=== PATIENT | female | born 1960 | race Caucasian/White ===

== ENCOUNTER 2016-09-30 14:21 | Emergency (ER) | payer OTHER ==
--- NOTE | 2016-09-30 14:31 | EDM.PDOC ---
ED HPI GENERAL MEDICAL PROBLEM - General Chief Complaint: Head Injury Stated Complaint: struck in head by canopy that fell off cart at wor Time Seen by Provider: 09/30/16 14:25 Source of Information: Reports: Patient History Limitations: Reports: No Limitations - History of Present Illness Onset: Today, Sudden Duration: Minutes: Location: Reports: Head Quality: Reports: Ache, Throbbing Severity: Moderate Improves with: Reports: None Worsens with: Reports: None Context: Reports: Trauma Associated Symptoms: Reports: No Other Symptoms head Pain Score (Numeric/FACES): 7 - Related Data Allergies Allergy/AdvReac Type Severity Reaction Status Date / Time No Known Allergies Allergy Verified 09/30/16 14:24 Home Meds: Home Meds Venlafaxine HCl [Venlafaxine ER] 75 mg PO DAILY 09/30/16 [History] atorvaSTATin [Lipitor] 10 mg PO DAILY 09/30/16 [History] traMADol HCl [Tramadol HCl] 50 mg PO Q6HR PRN 09/30/16 [History] ED ROS GENERAL - Review of Systems Review Of Systems: See Below Constitutional: Reports: No Symptoms HEENT: Reports: No Symptoms Respiratory: Reports: No Symptoms Cardiovascular: Reports: No Symptoms Endocrine: Reports: No Symptoms GI/Abdominal: Reports: No Symptoms : Reports: No Symptoms Musculoskeletal: Reports: Neck Pain Skin: Reports: No Symptoms Neurological: Reports: Confusion, Headache Psychiatric: Reports: No Symptoms ED EXAM, HEAD INJURY - Physical Exam Exam: See Below Exam Limited By: Altered Mental Status General Appearance: Alert, No Apparent Distress Head: Scalp Abrasions Ears: Normal External Exam, Normal Canal, Hearing Grossly Normal, Normal TMs Nose: Normal Inspection, Normal Mucousa, No Blood Throat/Mouth: Normal Inspection, Normal Lips, Normal Teeth, Normal Gums, Normal Oropharynx, Normal Voice, No Airway Compromise Neck: Non-Tender, Full Range of Motion, Normal Alignment, Normal Inspection Respiratory: No Respiratory Distress, Lungs Clear, Normal Breath Sounds, No Accessory Muscle Use, Chest Non-Tender Cardiovascular: Normal Peripheral Pulses, Regular Rate, Rhythm, No Edema, No Gallop, No JVD, No Murmur, No Rub GI/Abdominal Exam: Normal Bowel Sounds, Soft, Non-Tender, No Organomegaly, No Distention, No Abnormal Bruit, No Mass (Female) Exam: Deferred Rectal (Female) Exam: Deferred Extremities: No Evidence of Injury 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 As Tested, No Motor/Sensory Deficits, Alert Skin: Ecchymosis (() - Jeannette Coma Score Best Eye Response ([place]): (4) Open Spontaneously Best Verbal Response ([place]): (5) Oriented Best Motor Response ([place]): (6) Obeys Commands Jeannette Total: 15 Course - Vital Signs Last Recorded V/S: Last Vital Signs Temp 99.4 F 09/30/16 14:46 Pulse 80 09/30/16 14:46 Resp 20 09/30/16 14:46 BP 130/62 09/30/16 14:46 Pulse Ox 97 09/30/16 14:46 - Orders/Labs/Meds Orders: Active Orders 24 hr Category Date Time Status Head wo Cont [CT] Stat Exams 09/30/16 14:29 Taken Departure - Departure Time of Disposition: 16:11 Disposition: Home, Self-Care 01 Condition: Good Clinical Impression: Contusion of cerebral cortex - Discharge Information Instructions: Facial or Scalp Contusion, Head Injury, Adult, [id number] Referrals: PCP,Not In Area [Primary Care Provider] - Forms: ED Department Discharge Care Plan Goals: Patient is to go home and rest apply ice to forehead as needed return to the emergency room if any concerns May take Tylenol 500 mg 2 tablets 4 times a day for headache and pain not to exceed 5 days - Problem List & Annotations (1) Contusion of head SNOMED Code(s): 423355295 Code(s): S00.93XA - CONTUSION OF UNSPECIFIED PART OF HEAD, INITIAL ENCOUNTER Status: Acute Priority: Medium Current Visit: Yes Qualifiers: Encounter type: initial encounter Contusion of head detail: orbital tissues - My Orders Last 24 Hours: My Active Orders 09/30/16 14:29 Head wo Cont [CT] Stat - Assessment/Plan Last 24 Hours: My Active Orders 09/30/16 14:29 Head wo Cont [CT] Stat
[2016-09-30 14:47] VITALS: BP 130/62
== END 2016-09-30 16:30 | disposition home or self-care (01) ==
LOC: LL.ED 14:21
DX: S06.2X0A Diffuse traumatic brain injury without loss of consciousness, initial encounter (principal); Z79.899 Other long term (current) drug therapy; W22.8XXA Striking against or struck by other objects, initial encounter
CPT/HCPCS: 70450; 99284

== ENCOUNTER → 2019-01-21 | Outpatient (CLI) | payer OTHER | LOC: LL.CLIN 14:27 | PROVIDERS: ATTEND Nurse Practitioner | DX: S59.911A Unspecified injury of right forearm, initial encounter (principal); M79.89 Other specified soft tissue disorders; X58.XXXA Exposure to other specified factors, initial encounter | CPT/HCPCS: 73090-RT ==

== ENCOUNTER 2019-04-22 13:37 | Observation (INO) | payer BC, OTHER ==
[2019-04-22] MEDS ORDERED: Ticagrelor 90 MG Tab PO ONE (13:39)
[2019-04-22] MEDS ORDERED: Famotidine 20 MG/2 ML SDV IVPUSH ONE (13:39)
[2019-04-22] MEDS ORDERED: Sodium Chloride 0.9% 10 ML Syringe FLUSH PRN ×2 (13:39→15:51)
[2019-04-22] MEDS ORDERED: Metoprolol Tartrate 5 MG/5 ML SDV IVPUSH ONE (13:39)
--- NOTE | 2019-04-22 13:39 | EDM.PDOC ---
ED HPI GENERAL MEDICAL PROBLEM - General Chief Complaint: Cardiovascular Problem Stated Complaint: CP Time Seen by Provider: 04/22/19 13:39 Source of Information: Reports: Patient, Family (Daughter, Weston), Old Records ([facility] chart/EMR) - History of Present Illness INITIAL COMMENTS - FREE TEXT/NARRATIVE: The patient was brought to the emergency room via ambulance with ENT at [facility] with one sublingual nitroglycerin tablet given in route. Note that the patient did already have 2 chewable regular strength coated aspirins given by the [facility] nurse prior to arrival of the recyclable materials sorter. Patient had 8/10 retrosternal and left-sided chest pressure with radiation to the left arm and associated with some nausea and diaphoresis with symptoms starting at about 13:00 hours this afternoon. Note that the patient has not been feeling well for the last few days including heartburn type symptoms. Her overall exercise tolerance has been low during the last year, which she has blamed on her weight gain. The patient denies any heart flutter, dizziness, orthostasis, orthopnea, paresthesias, or any other anginal-type symptoms. No recent history of other abdominal pain, emesis, diarrhea, melena, gross hematochezia, or any food intolerance, including fatty foods, etc.. In addition, no significant history of gross hematuria, colic, or other UTI symptoms. The patient also denies any recent fever, cough, wheezing, dyspnea, etc.. That blood pressures at [facility] were elevated at 170s over 100's prior to patient transfer. recyclable materials sorter increase the previously applied O2 from 2 L to 6 L/m by nasal cannula prior to transfer to this facility. Some improvement of patient's chest pain to 6/10 prior to arrival with improvement after application of O2. Onset: Sudden Onset Date: 04/22/19 Onset Time: 13:00 Duration: Improving Location: Reports: Chest, Abdomen (Epigastric), Upper Extremity, Left, Radiates to (As above). Denies: Head, Face, Neck, Back, Pelvis, Upper Extremity, Right, Lower Extremity, Left, Lower Extremity, Right Quality: Reports: Pressure, Same as Previous Episode Improves with: Reports: Movement Worsens with: Reports: None Context: Reports: Other (As above). Denies: Sick Contact, Trauma Associated Symptoms: Reports: Confusion, Diaphoresis, Nausea/Vomiting. Denies: Chest Pain, Fever/Chills, Headaches, Loss of Appetite, Malaise, Rash, Seizure, Shortness of Breath, Syncope, Weakness Treatments INCIDENT RESPONSE SPECIALIST: Reports: Aspirin, Oxygen Left Chest Pain Score (Numeric/FACES): 8 - Related Data Allergies Allergy/AdvReac Type Severity Reaction Status Date / Time erythromycin base Allergy Rash Verified 04/22/19 13:49 Home Meds: Home Meds Citalopram [Citalopram HBr] 20 mg PO DAILY 04/22/19 [History] Ibuprofen [Advil] 400 mg PO Q6HR PRN 04/22/19 [History] cephALEXin [Keflex] 500 mg PO TID 04/22/19 [History] Past Medical History HEENT History: Reports: Cataract, Other (See Below). Denies: Allergic Rhinitis , Glaucoma, Hard of Hearing, Impaired Vision, Macular Degeneration, Retinal Detachment Other HEENT History: Beginning cataracts. Cardiovascular History: Reports: High Cholesterol, Other (See Below). Denies: Afib, Aneurysm, Arrhythmia, Blood Clots/VTE/DVT, CAD, Cardiomyopathy, Heart Failure, Heart Murmur, Hypertension, [place], PVD, Syncope Other Cardiovascular History: Dyslipidemia with no current medical therapy with patient not tolerating Lipitor secondary to myalgias. Respiratory History: Reports: Intubation, Previous. Denies: Asthma, Bronchitis , Recurrent, COPD, Intubation, Difficult, PE, Pneumonia, Recurrent, Pneumothorax , Sleep Apnea, TB Gastrointestinal History: Reports: GERD. Denies: Bowel Obstruction, Celiac Disease, Cholelithiasis, Chronic Constipation, Chronic Diarrhea, Colon Polyp, Diverticulosis, Fatty Liver, Fecal Incontinence, Gastritis, GI Bleed, Hepatitis , Hiatal Hernia, Inflammatory Bowel Disease, Irritable Bowel Syndrome, Jaundice , Pancreatitis, PUD Genitourinary History: Reports: Renal Calculus, STD, UTI, Recurrent, Other (See Below). Denies: Acute Renal Failure, Chronic Renal Insuffiency, Urinary Incontinence Other Genitourinary History: Right-sided urolithiasis with spontaneous passage in 1989. Previously treated chlamydia in her 20s. GIN CLERK History: Reports: . Denies: Dysfunctional Uterine Bleeding, Endometriosis, Fibroids, Polycystic Ovaries, Spontaneous : 4 Para: 4 LMP (Approximate): Other (See Below) Other GIN CLERK History: Additional diabetes with last . Otherwise Full term without complications during pregnancies or deliveries. Surgical menopause secondary to uterine prolapse after last delivery. History of benign ovarian cysts. Musculoskeletal History: Reports: Arthritis, Back Pain, Chronic, Neck Pain, Chronic, Osteoarthritis. Denies: Amputation, Fracture, Gout, RA, SLE Other Musculoskeletal History: Bilateral Carpal tunnel syndrome with no surgery to this point. Neurological History: Reports: Concussion, Head Trauma, Neuropathy, Peripheral, Other (See Below). Denies: Cerebral Aneurysms, CVA, Headaches, Chronic, Migraines, MS, Neuropathy, Diabetic, Parkinson's, Seizure, TIA Other Neuro History: Peripheral neuropathy secondary to carpal tunnel syndrome as above. Concussion at about age 9. Psychiatric History: Reports: Anxiety, Depression. Denies: Abuse, Victim of, ADD, ADHD, Addiction, Psych Hospitalization(s), PTSD, Suicide Attempt, Suicidal Ideation Endocrine/Metabolic History: Reports: Diabetes, Gestational, Obesity/BMI 30+. Denies: Diabetes, Type I, Diabetes, Type II, Hypothyroidism, IDDM Hematologic History: Reports: Anemia, Other (See Below). Denies: Blood Transfusion(s), Iron Deficiency Other Hematologic History: Anemia with pregnancies. Immunologic History: Reports: None. Denies: AIDS, HIV, SLE Oncologic (Cancer) History: Reports: None. Denies: Basal Cell Carcinoma, Breast , Cervix, Colon, Hodgkin's Lymphoma, Leukemia, Lymphoma, Malignant Melanoma, Non -Hodgkin's Lymphoma, Ovarian, Squamous Cell Carcinoma, Uterine Dermatologic History: Reports: None. Denies: Eczema, Psoriasis - Infectious Disease History Infectious Disease History: Reports: Chicken Pox, Measles. Denies: C-Difficile , Meningitis, Mononucleosis, MRSA, Mumps, Pertussis (Whooping Cough), Rheumatic Fever, RSV, Rubella, Scarlet Fever, Shingles, TB, VRE - Past Surgical History Head Surgeries/Procedures: Reports: None HEENT Surgical History: Reports: Adenoidectomy, LASIK, Oral Surgery, Tonsillectomy, Other (See Below). Denies: Cataract Surgery, Eye Surgery, Laser Surgery, Myringotomy w Tube(s), Naso-Sinus Surgery Other HEENT Surgeries/Procedures: [place] teeth extraction X 4 at age 18. Dental implantation X 1 in 2018. Tonsillectomy and adenoidectomy at age 12. LASIK surgery in 2007. Cardiovascular Surgical History: Reports: None. Denies: Varicose Respiratory Surgical History: Reports: None. Denies: Thoracentesis GI Surgical History: Reports: Colonoscopy, Other (See Below). Denies: Appendectomy, Cholecystectomy, EGD, Hernia, Inguinal, Hernia Repair/Other, Polypectomy Other GI Surgeries/Procedures: Colonoscopy in 2011. Female Surgical History: Reports: Breast Biopsy, Hysterectomy. Denies: Section, D&C, Oophorectomy, Salpingo-Oophorectomy, Tubal Ligation Other Female Surgeries/Procedures: Left breast biopsies for benign disease in 2004 and 2007. Partial hysterectomy secondary to prolapsed uterus in 2008 with concomitant excision of benign ovarian cysts. Endocrine Surgical History: Reports: None. Denies: Thyroid Biopsy Neurological Surgical History: Reports: None. Denies: C-Spine, Discectomy, Laminectomy, Lumbar Spine, Sacral Spine, Spinal Fusion, Thoracic Spine, Vertebroplasty Musculoskeletal Surgical History: Reports: Arthroscopic Procedure, Knee Replacement. Denies: Arthroscopic Knee, Carpal Tunnel, Ganglion Cyst, Joint Replacement, ORIF Other Musculoskeletal Surgeries/Procedures:: Excision of left wrist ganglion cyst at age 16. Left wrist tendon release in 2015. Left Knee arthroscopic meniscal surgery in the fall of 2016. Oncologic Surgical History: Reports: None Dermatological Surgical History: Reports: None - Past Imaging History Past Imaging History: Reports: CAT Scan (CT of the chest using coronary protocol in 2014 which was negative by patient history. CT of the head on .), MRI (MRI of the left knee on 04/22/16. MRI of the left wrist on 05/09/15 and 05/01/15.), Stress Testing (Exercise cardiac stress test in about 2014) Social & Family History - Family History HEENT: Reports: Glaucoma, Other (See Below). Denies: Macular Degeneration, Retinal Detachment Other HEENT Family History: Father with glaucoma. Cardiac: Reports: Aneurysm, CAD, Cardiomyopathy, Heart Failure, High Cholesterol , Hypertension, [place], Pacemaker, Other (See Below). Denies: Afib, Arrhythmia, Blood Clots/VTE/DVT, PVD/COD, Syncope Other Cardiac Family History: Father with history of [place] initially in his 50s with subsequent cardiac arrhythmia requiring pacemaker placement. Additional [place] about 2 years thereafter with no other cardiac procedures. Father with hypertension and hyperlipidemia. Paternal grandfather with history of fatal ruptured thoracic aortic aneurysm at about 68. Paternal aunt with fatal [place] in her late 60s. Respiratory: Reports: COPD, Sleep Apnea, Other (See Below). Denies: Asthma, PE , Pneumothorax Other Respiratory Family Hisory: Mother with COPD history of tobacco use. Parents with sleep apnea. GI: Reports: Colon Polyps, Other (See Below). Denies: Celiac Disease, Cholelithiasis, GERD, GI bleed, Inflammatory Bowel Disease, Irritable Bowel Syndrome, PUD Other GI Family History: Mother and maternal closed 2 with colonic polyps. : Reports: None. Denies: Renal Calculus, Renal Disease/Insufficiency OBGYN: Reports: None. Denies: Endometriosis, Recurrent Spontaneous Musculoskeletal: Reports: Arthritis, RA, Other (See Below). Denies: Gout, SLE Other Musculoskeletal Family History: Mother with rheumatoid arthritis. Neurological: Reports: CVA, Other (See Below). Denies: Alzheimers Disease, Cerebral Aneurysms, Dementia, Migraines, MS, Seizure, TIA Other Neurological Family History: Father with initial CVA at age 69 with fatal CVA at age 71. Psychiatric: Reports: Anxiety, Depression, Other (See Below). Denies: Abuse, Victim of, ADD, ADHD, Psych Hospitalization(s), PTSD, Suicide Attempt Other Psychiatric Family History: Father with anxiety depression disorder. Endocrine/Metabolic: Reports: Diabetes, type II, IDDM, Other (See Below). Denies: Diabetes, Gestational, Diabetes, Type I, Diabetes Mellitus, Type 3c Other Endocrine/Metabolic Family History: Father, paternal aunt, and paternal grandfather with IDDM. AODM in maternal grandmother. Sister with previous IDDM which did improve after weight loss and persistent AODM. Hematologic: Denies: Anemia, SLE Immunologic: Reports: None. Denies: AIDS, HIV, SLE Dermatologic: Reports: None. Denies: Eczema, Psoriasis Oncologic: Reports: Brain, Colon, Other (See Below). Denies: Breast, Cervix, Hodgkin's Lymphoma, Leukemia, Lymphoma, Ovarian, Uterine Other Oncologic Family History: Maternal uncle with lung cancer in his 50s. Mother with fatal lung cancer including cerebral metastases at age 68 with previous history of tobacco use. Maternal grandfather with fatal brain cancer at age 50. Paternal grandmother with brain cancer at age 68. - Tobacco Use Smoking Status *Q: Never Smoker Tobacco Use Within Last Twelve Months: No Used Tobacco, but Quit: No Smoking Cessation Information Provided To Patient: No Second Hand Smoke Exposure: No Second Hand Smoke Education Provided: No - Caffeine Use Caffeine Use: Reports: Coffee (4 cups per day), Soda (1 soda per day), Tea (1 Glass per month). Denies: Energy Drinks - Alcohol Use Alcohol Use History: Yes Days Per Week of Alcohol Use: 0 Number of Drinks Per Day: 2 Number of Drinks Per Day Comment: Usually on a monthly basis. No previous DWIs, problems with alcohol abuse, etc. Total Drinks Per Week: 0 Alcohol Use in Last Twelve Months: Yes Alcohol Use Frequency: Monthly - Recreational Drug Use Recreational Drug Use: No Drug Use in Last 12 Months: No Recreational Drug Type: Denies: Amphetamines (Speed), Cocaine, Heroin, Inhalants (Glues, Solvents, Aerosols), LSD (Acid), Marijuana/Hashish, Mescaline , Methamphetamine, Morphine, Oxycodone - Living Situation & Occupation Living situation: Reports: (1992), with Family (Daughter) Occupation: Employed ([employer]) ED ROS GENERAL - Review of Systems Review Of Systems: Comprehensive ROS is negative, except as noted in HPI. ED EXAM, GENERAL - Physical Exam Exam: See Below Exam Limited By: No Limitations General Appearance: Alert, WD/WN, No Apparent Distress, Anxious (Mild) Eye Exam: Bilateral Eye: EOMI, Normal Inspection (No nystagmus), PERRL Ears: Normal External Exam, Normal Canal, Hearing Grossly Normal, Normal TMs Nose: Normal Inspection, Normal Mucosa, No Blood Throat/Mouth: Normal Inspection, Normal Lips, Normal Teeth, Normal Gums, Normal Oropharynx, Normal Voice, No Airway Compromise. No: Dysphagia, Perioral Cyanosis Head: Atraumatic, Normocephalic Neck: Normal Inspection, Supple, Non-Tender, Full Range of Motion. No: Carotid Bruit, Lymphadenopathy (L), Lymphadenopathy (R), Thyromegaly Respiratory/Chest: No Respiratory Distress, Lungs Clear, Normal Breath Sounds, No Accessory Muscle Use, Chest Non-Tender. No: Pleural Rub, Retractions Cardiovascular: Normal Peripheral Pulses, Regular Rate, Rhythm (Mild sinus arrhythmia), No Edema, No Gallop, No JVD, No Murmur, No Rub. No: Gallop/S3, Gallop/S4, Extra Beats, Friction Rub Peripheral Pulses: 2+: Radial (L), Radial (R), Dorsalis Pedis (L), Dorsalis Pedis (R) GI/Abdominal: Normal Bowel Sounds, Soft, Non-Tender, No Organomegaly, No Distention, No Abnormal Bruit, No Mass, Pelvis Stable, Other (Obese). No: Guarding (Female) Exam: Deferred Rectal (Female) Exam: Deferred Back Exam: Normal Inspection, Full Range of Motion. No: CVA Tenderness (L), CVA Tenderness (R), Muscle Spasm Extremities: Normal Inspection, Normal Range of Motion, Non-Tender, No Pedal Edema, Normal Capillary Refill. No: Warren's Sign Neurological: Alert, Oriented, CN II-XII Intact, Normal Cognition, Normal Gait, Normal Reflexes, No Motor/Sensory Deficits Psychiatric: Anxious (Mild). No: Depressed Mood Skin Exam: Warm, Dry, Intact, Normal Color, No Rash. No: Diaphoretic, Tattoo(s) , Wound/Incision Lymphatic: No Adenopathy EKG INTERPRETATION EKG Date: 04/22/19 Time: 13:40 Rhythm: NSR (Mild sinus arrhythmia) Rate (Beats/Min): 72 [place]: Normal (Left) P-Wave: Present (Diffuse biphasic P waves and poor R-wave progression in the anterior leads) QRS: RBBB (0.10 seconds representing repolarization changes versus beginning incomplete right bundle branch block) ST-T: Other (Wave inversion in lead 3, V1, and V3 with no lead reversal. Possible beginning T-wave inversion in lead aVF) QT: Normal [place]/PQ Interval: 0.12 seconds ribs in a short [place] interval with no delta waves noted. Comparison: NA - No Prior EKG EKG Interpretation Comments: 1. Borderline inferoanterior coronary artery disease 2. Incomplete right bundle branch block 3. Short [place] interval Course - Vital Signs Last Recorded V/S: Last Vital Signs Temp 37.0 C 04/22/19 13:38 Pulse 74 04/22/19 13:58 Resp 16 04/22/19 13:38 BP 169/83 H 04/22/19 13:58 Pulse Ox 100 04/22/19 13:40 Vital Signs - 24 hr 04/22/19 04/22/19 04/22/19 13:38 13:40 13:57 Temperature [ 37.0 C Temporal] Pulse, Peripheral Pulse, 70 Peripheral [ Pulse Oximetry] Respiratory 16 Rate Blood Pressure 169/83 H Blood Pressure 161/100 H [Left Upper Arm ] O2 Sat by Pulse 95 Oximetry O2 Sat by Pulse 100 Oximetry [ Nasal Cannula] 04/22/19 04/22/19 04/22/19 13:58 14:05 14:20 Temperature [ Temporal] Pulse, 74 Peripheral Pulse, 59 L 60 Peripheral [ Pulse Oximetry] Respiratory 19 19 Rate Blood Pressure 169/83 H Blood Pressure 144/85 H 162/72 H [Left Upper Arm ] O2 Sat by Pulse 95 94 L Oximetry O2 Sat by Pulse Oximetry [ Nasal Cannula] 04/22/19 04/22/19 04/22/19 14:35 14:50 15:05 Temperature [ Temporal] Pulse, Peripheral Pulse, 60 63 60 Peripheral [ Pulse Oximetry] Respiratory 19 19 20 Rate Blood Pressure Blood Pressure 145/72 H 163/74 H 182/83 H [Left Upper Arm ] O2 Sat by Pulse 98 99 99 Oximetry O2 Sat by Pulse Oximetry [ Nasal Cannula] - Orders/Labs/Meds Orders: Active Orders 24 hr Category Date Time Status Cardiac Monitoring [RC] . DIRECTED Care 04/22/19 13:40 Active EKG Documentation Completion [RC] ASDIRECTED Care 04/22/19 13:40 Active Oxygen Therapy, ED [RC] CONTINUOUS Care 04/22/19 13:40 Active Peripheral IV Care [RC] . DIRECTED Care 04/22/19 13:40 Active Pulse Oximetry [RC] CONTINUOUS Care 04/22/19 13:40 Active Up With Assistance [RC] PFP Care 04/22/19 13:40 Active Vital Signs [RC] PFP Care 04/22/19 13:40 Active Nothing per Oral Now Diet [DIET] Diet 04/22/19 Breakfast Active Chest 1V Frontal [CR] Stat Exams 04/22/19 13:40 Taken Nitroglycerin [Nitrostat] Med 04/22/19 13:44 Stat 0.4 mg SL ONETIME STA Sodium Chloride 0.9% [Saline Flush] Med 04/22/19 13:39 Active 10 ml FLUSH ASDIRECTED PRN Obtain Past Medical Record [OM.PC] Urgent Oth 04/22/19 13:40 Active Peripheral IV Insertion Adult [OM.PC] Stat Oth 04/22/19 13:40 Ordered Resuscitation Status Stat Resus Stat 04/22/19 13:39 Ordered Medication Orders Nitroglycerin (Nitrostat) 0.4 mg SL ONETIME STA Stop: 04/23/19 13:45 Last Admin: 04/22/19 13:57 Dose: 0.4 mg Sodium Chloride (Saline Flush) 10 ml FLUSH ASDIRECTED PRN PRN Reason: Keep Vein Open Last Admin: 04/22/19 14:05 Dose: 10 ml Labs: Laboratory Tests 04/22/19 04/22/19 04/22/19 Range/Units 13:45 13:45 13:45 WBC 5.6 (4.0-10.2) K/uL RBC 4.33 (3.77-5.09) M/uL Hgb 13.2 (11.7-15.5) g/dL Hct 39.8 (34.0-46.0) % MCV 91.9 (84.0-98.0) fL MCH 30.5 (28.2-33.3) pg MCHC 33.2 (31.7-36.0) g/dL RDW 12.7 (11.2-14.1) % Plt Count 250 (150-350) K/uL Neut % (Auto) 62.7 (45.0-80.0) % Lymph % (Auto) 26.2 (10.0-50.0) % [place] % (Auto) 7.7 (2.0-14.0) % Eos % (Auto) 2.9 (0.0-5.0) % Baso % (Auto) 0.5 (0.0-2.0) % Neut # (Auto) 3.50 (1.40-7.00) K/uL Lymph # (Auto) 1.46 (0.50-3.50) K/uL [place] # (Auto) 0.43 (0.00-1.00) K/uL Eos # (Auto) 0.16 (0.00-0.50) K/uL Baso # (Auto) 0.03 (0.00-0.20) K/uL PT 11.0 (9.5-12.0) SEC INR 1.0 APTT 24.1 (21.0-31.3) SEC D-Dimer, Quantitative < 100 (0-400) ng/mL Sodium (136-145) mmol/L Potassium (3.5-5.1) mmol/L Chloride (98-107) mmol/L Carbon Dioxide (21.0-32.0) mmol/L BUN (7-18) mg/dL Creatinine (0.51-1.17) mg/dL Est Cr Clr Drug Dosing mL/min Estimated GFR (MDRD) mL/min Glucose (74-106) mg/dL Lactic Acid (0.4-2.0) mmol/L Uric Acid (2.6-7.2) mg/dL Calcium (8.5-10.1) mg/dL Magnesium (1.8-2.4) mg/dL Total Bilirubin (0.2-1.0) mg/dL AST (15-37) U/L ALT (12-78) U/L Alkaline Phosphatase (46-116) IU/L Creatine Kinase (26-308) U/L Creatine Kinase Index (0.0-2.5) % CK-MB (CK-2) (0.00-3.60) ng/mL Troponin I (0.000-0.056) ng/mL NT-Pro-B Natriuret Pep (0-125) pg/mL Total Protein (6.4-8.2) g/dL Albumin (3.4-5.0) g/dL TSH, Ultra Sensitive (0.358-3.740) mIU/mL 04/22/19 04/22/19 Range/Units 13:45 13:45 WBC (4.0-10.2) K/uL RBC (3.77-5.09) M/uL Hgb (11.7-15.5) g/dL Hct (34.0-46.0) % MCV (84.0-98.0) fL MCH (28.2-33.3) pg MCHC (31.7-36.0) g/dL RDW (11.2-14.1) % Plt Count (150-350) K/uL Neut % (Auto) (45.0-80.0) % Lymph % (Auto) (10.0-50.0) % [place] % (Auto) (2.0-14.0) % Eos % (Auto) (0.0-5.0) % Baso % (Auto) (0.0-2.0) % Neut # (Auto) (1.40-7.00) K/uL Lymph # (Auto) (0.50-3.50) K/uL [place] # (Auto) (0.00-1.00) K/uL Eos # (Auto) (0.00-0.50) K/uL Baso # (Auto) (0.00-0.20) K/uL PT (9.5-12.0) SEC INR APTT (21.0-31.3) SEC D-Dimer, Quantitative (0-400) ng/mL Sodium 141 (136-145) mmol/L Potassium 4.0 (3.5-5.1) mmol/L Chloride 104 (98-107) mmol/L Carbon Dioxide 27.9 (21.0-32.0) mmol/L BUN 18 (7-18) mg/dL Creatinine 0.72 (0.51-1.17) mg/dL Est Cr Clr Drug Dosing 70.45 mL/min Estimated GFR (MDRD) > 60 mL/min Glucose 86 (74-106) mg/dL Lactic Acid 0.7 (0.4-2.0) mmol/L Uric Acid 3.8 (2.6-7.2) mg/dL Calcium 9.1 (8.5-10.1) mg/dL Magnesium 1.9 (1.8-2.4) mg/dL Total Bilirubin 0.4 (0.2-1.0) mg/dL AST 20 (15-37) U/L ALT 22 (12-78) U/L Alkaline Phosphatase 72 (46-116) IU/L Creatine Kinase 89 (26-308) U/L Creatine Kinase Index 0.9 (0.0-2.5) % CK-MB (CK-2) 0.80 (0.00-3.60) ng/mL Troponin I 0.001 (0.000-0.056) ng/mL NT-Pro-B Natriuret Pep 127 H (0-125) pg/mL Total Protein 6.6 (6.4-8.2) g/dL Albumin 3.6 (3.4-5.0) g/dL TSH, Ultra Sensitive 3.821 H (0.358-3.740) mIU/mL Meds: Medications Generic Name Dose Route Start Last Admin Trade Name Freq PRN Reason Stop Dose Admin Nitroglycerin 0.4 mg 04/22/19 13:44 04/22/19 13:57 Nitrostat SL 04/23/19 13:45 0.4 mg ONETIME STA Administration Sodium Chloride 10 ml 04/22/19 13:39 04/22/19 14:05 Saline Flush FLUSH 10 ml ASDIRECTED PRN Administration Keep Vein Open Discontinued Medications Generic Name Dose Route Start Last Admin Trade Name Freq PRN Reason Stop Dose Admin Famotidine 40 mg 04/22/19 13:39 04/22/19 13:58 Pepcid IVPUSH 04/22/19 13:40 40 mg ONETIME ONE Administration Metoprolol Tartrate 2.5 mg 04/22/19 13:39 04/22/19 13:58 Lopressor IVPUSH 04/22/19 13:40 2.5 mg ONETIME ONE Administration Ticagrelor 180 mg 04/22/19 13:39 04/22/19 13:57 Brilinta PO 04/22/19 13:40 180 mg ONETIME ONE Administration - Radiology Interpretation Free Text/Narrative:: coil former shows mild sinus arrhythmia with initial heart rate in the 70s and occasional borderline bradycardia in the high 50s after IV Lopressor therapy. No other ectopy or arrhythmia. Chest x-ray, portable, shows mild prominence of the proximal aortic arch with no cardiomegaly, CHF, pulmonary infiltrates, pneumothorax, etc. Departure - Departure Time of Disposition: 15:35 Disposition: Refer to Observation Condition: Good Clinical Impression: Incomplete right bundle branch block (RBBB), Dyslipidemia, Mixed anxiety depressive disorder, Hypothyroidism (acquired) Chest pain Qualifiers: Chest pain type: precordial pain Qualified Code(s): R07.2 - Precordial pain Osteoarthritis Qualifiers: Osteoarthritis location: multiple joints Osteoarthritis type: primary Qualified Code(s): M15.0 - Primary generalized (osteo)arthritis Referrals: Ada Rothman NP [Primary Care Provider] - Forms: ED Department Discharge Care Plan Goals: See plan. Sepsis Event Note - Focused Exam Vital Signs: Vital Signs Temp Pulse Pulse Resp BP BP Pulse Ox 04/22/19 13:58 74 169/83 H 04/22/19 13:57 169/83 H 04/22/19 13:40 04/22/19 13:38 37.0 C 70 16 161/100 H 95 Pulse Ox 04/22/19 13:58 04/22/19 13:57 04/22/19 13:40 100 04/22/19 13:38 Date Exam was Performed: 04/22/19 Time Exam was Performed: 14:31 - Problem List & Annotations (1) Chest pain SNOMED Code(s): 27500951 Code(s): R07.9 - CHEST PAIN, UNSPECIFIED Status: Acute Priority: High Current Visit: Yes Onset Date: 04/22/19 Annotation/Comment:: Chest pain protocol was initiated in the emergency room upon patient's arrival.The patient did receive aspirin prior to arrival as above. Initiate standard rule out [place] orders. Cardiology consultation depending on her clinical course. Note persistently elevated blood pressure despite sublingual nitroglycerin tablets 2 and low-dose IV Lopressor. Secondary to some borderline EKG changes as above Imdur therapy will be initiated on admission. Recommend Cardiolite stress test on an outpatient basis. [facility] physician assumes care in the a.m.. Note some borderline bradycardia with IV Lopressor with no further beta viridiana therapy at this time. Qualifiers: Chest pain type: precordial pain Qualified Code(s): R07.2 - Precordial pain (2) Dyslipidemia SNOMED Code(s): 435183263 Code(s): E78.5 - HYPERLIPIDEMIA, UNSPECIFIED Status: Chronic Priority: Medium Current Visit: Yes Annotation/Comment:: Lipid panel in a.m. Additional glycosylated hemoglobin secondary to patient's previous history of gestational diabetes. Weight loss in moderation is advisable with dietary information provided at discharge. (3) Hypothyroidism (acquired) SNOMED Code(s): 677850571 Code(s): E03.9 - HYPOTHYROIDISM, UNSPECIFIED Status: Acute Priority: Medium Current Visit: Yes Onset Date: 04/22/19 Annotation/Comment:: Mildly elevated TSH. Possible borderline beginning hypothyroidism. Initiate low- dose Synthroid therapy, which should also be beneficial for her anxiety, etc.. Recommend follow-up TSH in 4 weeks. (4) Incomplete right bundle branch block (RBBB) SNOMED Code(s): 016790282 Code(s): I45.10 - UNSPECIFIED RIGHT BUNDLE-BRANCH BLOCK Status: Acute Priority: High Current Visit: Yes Onset Date: 04/22/19 Annotation/Comment: : Observe for now (5) Mixed anxiety depressive disorder SNOMED Code(s): 159155854 Code(s): F41.8 - OTHER SPECIFIED ANXIETY DISORDERS Status: Chronic Priority: Medium Current Visit: Yes Annotation/Comment:: Moderate control based on clinical exam. Observe for now. Close follow-up by regular provider. (6) Osteoarthritis SNOMED Code(s): 833679121 Code(s): M19.90 - UNSPECIFIED OSTEOARTHRITIS, UNSPECIFIED SITE Status: Chronic Priority: Medium Current Visit: Yes Annotation/Comment:: Stable by patient history. Qualifiers: Osteoarthritis location: multiple joints Osteoarthritis type: primary Qualified Code(s): M15.0 - Primary generalized (osteo)arthritis - Problem List Review Problem List Initiated/Reviewed/Updated: Yes - My Orders Last 24 Hours: My Active Orders 04/22/19 13:39 Sodium Chloride 0.9% [Saline Flush] 10 ml FLUSH ASDIRECTED PRN Resuscitation Status Stat 04/22/19 13:40 Cardiac Monitoring [RC] . DIRECTED EKG Documentation Completion [RC] ASDIRECTED Oxygen Therapy, ED [RC] CONTINUOUS Peripheral IV Care [RC] . DIRECTED Pulse Oximetry [RC] CONTINUOUS Up With Assistance [RC] PFP Vital Signs [RC] PFP Chest 1V Frontal [CR] Stat Obtain Past Medical Record [OM.PC] Urgent Peripheral IV Insertion Adult [OM.PC] Stat 04/22/19 13:44 Nitroglycerin [Nitrostat] 0.4 mg SL ONETIME STA 04/22/19 Breakfast Nothing per Oral Now Diet [DIET] - Assessment/Plan Admission H&P: Please use this note as an admission H&P Last 24 Hours: My Active Orders 04/22/19 13:39 Sodium Chloride 0.9% [Saline Flush] 10 ml FLUSH ASDIRECTED PRN Resuscitation Status Stat 04/22/19 13:40 Cardiac Monitoring [RC] . DIRECTED EKG Documentation Completion [RC] ASDIRECTED Oxygen Therapy, ED [RC] CONTINUOUS Peripheral IV Care [RC] . DIRECTED Pulse Oximetry [RC] CONTINUOUS Up With Assistance [RC] PFP Vital Signs [RC] PFP Chest 1V Frontal [CR] Stat Obtain Past Medical Record [OM.PC] Urgent Peripheral IV Insertion Adult [OM.PC] Stat 04/22/19 13:44 Nitroglycerin [Nitrostat] 0.4 mg SL ONETIME STA 04/22/19 Breakfast Nothing per Oral Now Diet [DIET] Assessment:: As above Plan: As above. Extensive precautions were given to the patient and her daughter, who are in agreement with the treatment plan. The patient's condition is stable enough for observation status and general supervision.
[2019-04-22] MEDS ORDERED: Nitroglycerin 0.4 MG Tab.SL SL STA (13:44)
[2019-04-22 14:16] LABS: CHLORIDE,CL 104 mmol/L (98-107); SODIUM,NA 141 mmol/L (136-145)
[2019-04-22] MEDS ORDERED: Temazepam 15 MG Cap PO PRN (15:51)
[2019-04-22] MEDS ORDERED: Isosorbide Mononitrate 30 MG Tab.ER PO ONE (15:53)
[2019-04-22] MEDS: Cephalexin 250 MG Cap PO SCH (17:29)
[2019-04-22] MEDS ORDERED: Isosorbide Mononitrate 30 MG Tab.ER PO SCH (18:00)
[2019-04-22] MEDS: Acetaminophen 325 MG Tab PO PRN (19:33)
[2019-04-23] MEDS ORDERED: Levothyroxine 25 MCG Tab PO SCH (07:30)
[2019-04-23] MEDS: Cephalexin 250 MG Cap PO SCH ×2 (07:45→11:40)
[2019-04-23] MEDS: Acetaminophen 325 MG Tab PO PRN (07:53)
[2019-04-23] MEDS ORDERED: Citalopram 20 MG Tab PO SCH (08:00)
[2019-04-23 08:03] LABS: HEMOGLOBIN A1C 5.9 % (4.3-5.7)
[2019-04-23 08:07] LABS: CHLORIDE,CL 107 mmol/L (98-107); SODIUM,NA 143 mmol/L (136-145)
[2019-04-23] MEDS ORDERED: Metoprolol Succinate 25 MG Tab.ER PO ONE (08:40)
[2019-04-23] MEDS ORDERED: Meclizine 25 MG Tab PO ONE (08:42)
[2019-04-23 12:20] VITALS: BP 140/74; PULSE 62
--- NOTE | 2019-04-23 16:12 | PCM.DCSUM1 ---
Discharge Summary - Hospital Course Brief History: Admitted for chest pain complaint/rule out MA protocol Diagnosis: Stroke: No - Discharge Data Discharge Date: 04/23/19 Discharge Disposition: Home, Self-Care 01 Condition: Good - Referral to Home Health Primary Care Physician: Ada Rothman NP - Discharge Diagnosis/Problem(s) (1) Chest pain SNOMED Code(s): 46739367 ICD Code: R07.9 - CHEST PAIN, UNSPECIFIED Status: Acute Priority: High Current Visit: Yes Onset Date: 04/22/19 Problem Details: Pain-free since shortly after arrival to ER yesterday. Serial troponins negative. No changes noted on EKG/Telemetry. EKGs reviewed by /[facility]. She did not recommend any additional testing at this time given the negative cardiac workup so far. Patient recalls similar chest pain around 5 years ago that went away with GI cocktail. Had negative treadmill testing afterwards. Feels that this recent episode was triggered by eating a 'wafer cookie' offered to her at work. Eating a banana helped, but subsequent coffee made it worse again. Thus symptoms are more suggestive of GI etiology. Will have patient follow up with clinic next week and discuss having updated stress testing. Qualifiers: Chest pain type: precordial pain Qualified Code(s): R07.2 - Precordial pain (2) Hypertension SNOMED Code(s): 53379525 ICD Code: I10 - ESSENTIAL (PRIMARY) HYPERTENSION Status: Acute Priority: High Current Visit: Yes Problem Details: Hx elevated BPs on/off in past. Significant elevation yesterday at [facility] per ER note. Will start patient on Norvasc. Recommended home BP monitor. Close follow up with primary provider. Imgur caused headache and was discontinued. Qualifiers: Hypertension type: unspecified Qualified Code(s): I10 - Essential (primary ) hypertension (3) Hypothyroidism (acquired) SNOMED Code(s): 332307409 ICD Code: E03.9 - HYPOTHYROIDISM, UNSPECIFIED Status: Acute Priority: Medium Current Visit: Yes Onset Date: 04/22/19 Problem Details: Mildly elevated TSH. Possible borderline beginning hypothyroidism. Initiate low-dose Synthroid therapy, which should also be beneficial for her anxiety, etc.. Recommend follow-up TSH in 4 weeks. (4) Incomplete right bundle branch block (RBBB) SNOMED Code(s): 506709680 ICD Code: I45.10 - UNSPECIFIED RIGHT BUNDLE-BRANCH BLOCK Status: Acute Priority: High Current Visit: Yes Onset Date: 04/22/19 Problem Details: Observe for now (5) Dyslipidemia SNOMED Code(s): 247822564 ICD Code: E78.5 - HYPERLIPIDEMIA, UNSPECIFIED Status: Chronic Priority: Medium Current Visit: Yes Problem Details: Cholesterol 263 LDL 193 HDL 53 to follow up with primary provider (6) Mixed anxiety depressive disorder SNOMED Code(s): 027620904 ICD Code: F41.8 - OTHER SPECIFIED ANXIETY DISORDERS Status: Chronic Priority: Medium Current Visit: Yes Problem Details: Moderate control based on clinical exam. Observe for now. Close follow-up by regular provider. (7) Osteoarthritis SNOMED Code(s): 396019472 ICD Code: M19.90 - UNSPECIFIED OSTEOARTHRITIS, UNSPECIFIED SITE Status: Chronic Priority: Medium Current Visit: Yes Problem Details: Stable by patient history. Qualifiers: Osteoarthritis location: multiple joints Osteoarthritis type: primary Qualified Code(s): M15.0 - Primary generalized (osteo)arthritis (8) Elevated glycosylated hemoglobin SNOMED Code(s): 368721643 ICD Code: R73.09 - OTHER ABNORMAL GLUCOSE Status: Acute Priority: Medium Current Visit: Yes Problem Details: 5.9 Discussed dietary interventions that may be helpful. To follow up with primary provider. (9) Episodic lightheadedness SNOMED Code(s): 120289364 ICD Code: R42 - DIZZINESS AND GIDDINESS Status: Chronic Priority: Low Current Visit: Yes Problem Details: Long standing history of episodic dizziness. Only happens at work. Appears to be positional in nature. Usually triggered when patient stands up from squatting position or bent over position. May be related to patient's bradycardia. Patient cautioned to use extra care when in these circumstances. - Patient Summary/Data Hospital Course: Negative serial troponins. Unremarkable telemetry. Patient remained pain-free throughout stay. Suspect GI etiology for chest pain complaint based on history. Did consult with [facility] as noted above. Follow up appointment for patient made for next week on the . Precautions reviewed prior to discharge. - Patient Instructions Diet: Elimination Diet Activity: As Tolerated Driving: May Drive Today Showering/Bathing: May Shower Other/Special Instructions: Follow up on Friday at clinic for recheck. Discuss if new updated stress testing is needed. Continue close follow up in regards to thyroid medication and BP meds. Recommend home BP monitor/diary that will help you with better treatment of elevated blood pressure. Dietary changes as discussed. This will likely help you with weight loss/heartburn/BP/early diabetes. Follow up as needed if you have sudden worsening problems! - Discharge Plan *PRESCRIPTION DRUG MONITORING PROGRAM REVIEWED*: Not Applicable *COPY OF PRESCRIPTION DRUG MONITORING REPORT IN PATIENT CATHIE: Not Applicable Prescriptions/Med Rec: amLODIPine [Norvasc] 5 mg PO DAILY #30 tab Levothyroxine 25 mcg PO ACBREAKFAST #30 tablet Home Medications: Home Meds Citalopram [Citalopram HBr] 20 mg PO DAILY 04/22/19 [History] Ibuprofen [Advil] 400 mg PO Q6HR PRN 04/22/19 [History] cephALEXin [Keflex] 500 mg PO TID 04/22/19 [History] Levothyroxine 25 mcg PO ACBREAKFAST #30 tablet 04/23/19 [Rx] amLODIPine [Norvasc] 5 mg PO DAILY #30 tab 04/23/19 [Rx] Patient Handouts: Isosorbide Mononitrate extended-release tablets Forms: ED Department Discharge Referrals: Ada Rothman, [employer] [Primary Care Provider] - - Discharge Summary/Plan Comment DC Time >30 min.: No - General Info Date of Service: 04/23/19 Admission Dx/Problem (Free Text: Chest pain Subjective Update: Feels well. No current complaints. Functional Status: Reports: Pain Controlled, Tolerating Diet, Ambulating, Urinating. Denies: New Symptoms - Review of Systems General: Reports: No Symptoms HEENT: Reports: No Symptoms Pulmonary: Reports: Other (sometimes feels that her chest feels a bit tight when taking certain single breaths, otherwise is not SOB. ). Denies: Pleuritic Chest Pain, Cough, Sputum, Hemoptysis, Wheezing Cardiovascular: Reports: No Symptoms, Lightheadedness (was a little lightheaded earlier today. Resolved. ). Denies: Chest Pain Gastrointestinal: Reports: No Symptoms Genitourinary: Reports: No Symptoms Musculoskeletal: Reports: No Symptoms Skin: Reports: No Symptoms Neurological: Reports: Headache (developed after Imdur. Improved with Tylenol. ) . Denies: Tingling, Tremors, Trouble Speaking, Difficulty Walking, Weakness, Change in Speech Psychiatric: Reports: No Symptoms - Patient Data Vitals - Most Recent: Last Vital Signs Temp 37.1 C 04/23/19 12:00 Pulse 62 04/23/19 12:00 Resp 16 04/23/19 12:00 BP 140/74 04/23/19 12:00 Pulse Ox 99 04/23/19 12:00 Weight - Most Recent: 73.119 kg I&O - Last 24 hours: Intake & Output 04/23/19 04/23/19 04/23/19 06:59 14:59 22:59 Intake Total 60 120 Output Total 300 300 Balance -240 -180 Lab Results - Last 24 hrs: Laboratory Results - last 24 hr 04/22/19 04/23/19 04/23/19 Range/Units 19:54 06:54 06:54 WBC 5.9 (4.0-10.2) K/uL RBC 4.17 (3.77-5.09) M/uL Hgb 12.6 (11.7-15.5) g/dL Hct 38.6 (34.0-46.0) % MCV 92.6 (84.0-98.0) fL MCH 30.2 (28.2-33.3) pg MCHC 32.6 (31.7-36.0) g/dL RDW 12.8 (11.2-14.1) % Plt Count 218 (150-350) K/uL Neut % (Auto) 75.1 (45.0-80.0) % Lymph % (Auto) 13.9 (10.0-50.0) % [place] % (Auto) 7.1 (2.0-14.0) % Eos % (Auto) 3.4 (0.0-5.0) % Baso % (Auto) 0.5 (0.0-2.0) % Neut # (Auto) 4.42 (1.40-7.00) K/uL Lymph # (Auto) 0.82 (0.50-3.50) K/uL [place] # (Auto) 0.42 (0.00-1.00) K/uL Eos # (Auto) 0.20 (0.00-0.50) K/uL Baso # (Auto) 0.03 (0.00-0.20) K/uL Sodium 143 (136-145) mmol/L Potassium 4.0 (3.5-5.1) mmol/L Chloride 107 (98-107) mmol/L Carbon Dioxide 26.1 (21.0-32.0) mmol/L BUN 18 (7-18) mg/dL Creatinine 0.79 (0.51-1.17) mg/dL Est Cr Clr Drug Dosing 64.21 mL/min Estimated GFR (MDRD) > 60 mL/min Glucose 101 (74-106) mg/dL Hemoglobin A1c (4.3-5.7) % Calcium 8.6 (8.5-10.1) mg/dL Total Bilirubin 0.6 (0.2-1.0) mg/dL AST 18 (15-37) U/L ALT 20 (12-78) U/L Alkaline Phosphatase 62 (46-116) IU/L Creatine Kinase 75 57 (26-308) U/L Creatine Kinase Index 1.1 1.1 (0.0-2.5) % CK-MB (CK-2) 0.80 0.60 (0.00-3.60) ng/mL Troponin I 0.011 0.001 (0.000-0.056) ng/mL NT-Pro-B Natriuret Pep 98 (0-125) pg/mL Total Protein 5.9 L (6.4-8.2) g/dL Albumin 3.1 L (3.4-5.0) g/dL Triglycerides 86 (30-150) mg/dL Cholesterol 263 H (100-200) mg/dL LDL Cholesterol, Calc 193 H (0-100) mg/dL HDL Cholesterol 53 (40-60) mg/dL 04/23/19 Range/Units 06:54 WBC (4.0-10.2) K/uL RBC (3.77-5.09) M/uL Hgb (11.7-15.5) g/dL Hct (34.0-46.0) % MCV (84.0-98.0) fL MCH (28.2-33.3) pg MCHC (31.7-36.0) g/dL RDW (11.2-14.1) % Plt Count (150-350) K/uL Neut % (Auto) (45.0-80.0) % Lymph % (Auto) (10.0-50.0) % [place] % (Auto) (2.0-14.0) % Eos % (Auto) (0.0-5.0) % Baso % (Auto) (0.0-2.0) % Neut # (Auto) (1.40-7.00) K/uL Lymph # (Auto) (0.50-3.50) K/uL [place] # (Auto) (0.00-1.00) K/uL Eos # (Auto) (0.00-0.50) K/uL Baso # (Auto) (0.00-0.20) K/uL Sodium (136-145) mmol/L Potassium (3.5-5.1) mmol/L Chloride (98-107) mmol/L Carbon Dioxide (21.0-32.0) mmol/L BUN (7-18) mg/dL Creatinine (0.51-1.17) mg/dL Est Cr Clr Drug Dosing mL/min Estimated GFR (MDRD) mL/min Glucose (74-106) mg/dL Hemoglobin A1c 5.9 H (4.3-5.7) % Calcium (8.5-10.1) mg/dL Total Bilirubin (0.2-1.0) mg/dL AST (15-37) U/L ALT (12-78) U/L Alkaline Phosphatase (46-116) IU/L Creatine Kinase (26-308) U/L Creatine Kinase Index (0.0-2.5) % CK-MB (CK-2) (0.00-3.60) ng/mL Troponin I (0.000-0.056) ng/mL NT-Pro-B Natriuret Pep (0-125) pg/mL Total Protein (6.4-8.2) g/dL Albumin (3.4-5.0) g/dL Triglycerides (30-150) mg/dL Cholesterol (100-200) mg/dL LDL Cholesterol, Calc (0-100) mg/dL HDL Cholesterol (40-60) mg/dL ARIADNE Results - Last 24 hrs: Microbiology 04/23/19 08:20 Stool Occult Blood (ARIADNE) - Final Stool / Feces NEGATIVE OCCULT BLOOD REFERENCE RANGE: NEGATIVE Med Orders - Current: Current Medications Acetaminophen (Tylenol) 650 mg PO Q4H PRN PRN Reason: Pain Last Admin: 04/23/19 07:53 Dose: 650 mg Cephalexin (Keflex) 500 mg PO TID [facility] Last Admin: 04/23/19 11:40 Dose: 500 mg Citalopram Hydrobromide (Celexa) 20 mg PO DAILY [facility] Last Admin: 04/23/19 07:46 Dose: 20 mg Isosorbide Mononitrate (Imdur) 30 mg PO QPM [facility] Levothyroxine Sodium (Levothyroxine) 25 mcg PO ACBREAKFAST [facility] Last Admin: 04/23/19 07:46 Dose: 25 mcg Sodium Chloride (Saline Flush) 10 ml FLUSH ASDIRECTED PRN PRN Reason: Keep Vein Open Last Admin: 04/22/19 14:05 Dose: 10 ml Sodium Chloride (Saline Flush) 10 ml FLUSH Q12HR PRN PRN Reason: Keep Vein Open Temazepam (Restoril) 15 mg PO BEDTIME PRN PRN Reason: Insomnia Discontinued Medications Famotidine (Pepcid) 40 mg IVPUSH ONETIME ONE Stop: 04/22/19 13:40 Last Admin: 04/22/19 13:58 Dose: 40 mg Isosorbide Mononitrate (Imdur) 30 mg PO ONETIME ONE Stop: 04/22/19 15:54 Last Admin: 04/22/19 16:25 Dose: 30 mg Isosorbide Mononitrate (Imdur) 30 mg PO QPM [facility] Meclizine HCl (Antivert) 25 mg PO ONETIME ONE Stop: 04/23/19 08:43 Last Admin: 04/23/19 09:12 Dose: 25 mg Metoprolol Succinate (Toprol Xl) 25 mg PO ONETIME ONE Stop: 04/23/19 08:41 Last Admin: 04/23/19 09:12 Dose: 25 mg Metoprolol Tartrate (Lopressor) 2.5 mg IVPUSH ONETIME ONE Stop: 04/22/19 13:40 Last Admin: 04/22/19 13:58 Dose: 2.5 mg Nitroglycerin (Nitrostat) 0.4 mg SL ONETIME STA Stop: 04/23/19 13:45 Last Admin: 04/22/19 13:57 Dose: 0.4 mg Ticagrelor (Brilinta) 180 mg PO ONETIME ONE Stop: 04/22/19 13:40 Last Admin: 04/22/19 13:57 Dose: 180 mg - Exam General: Reports: Alert, Oriented, Cooperative, No Acute Distress HEENT: Reports: Pupils Equal, Pupils Reactive, EOMI, Mucous Membr. Moist/[place] Neck: Reports: Supple Lungs: Reports: Clear to Auscultation, Normal Respiratory Effort Cardiovascular: Reports: Regular Rate, Regular Rhythm GI/Abdominal Exam: Normal Bowel Sounds, Soft, Non-Tender, No Distention (Female) Exam: Deferred Rectal (Female) Exam: Deferred Back Exam: Reports: Normal Inspection Extremities: Normal Inspection, Non-Tender, No Pedal Edema, Normal Capillary Refill Skin: Reports: Warm, Dry Neurological: Reports: No New Focal Deficit Psy/Mental Status: Reports: Alert, Normal Affect, Normal Mood EKG INTERPRETATION EKG Date: 04/23/19 Time: 07:17 Rhythm: Other (sinus bradycardia) Rate (Beats/Min): 55 [place]: Normal P-Wave: Present QRS: Normal ST-T: Other (poorly visualized/low amplitude) QT: Normal Comparison: Other: (no signficant overall change noted.)
[2019-04-23] MEDS ORDERED: Isosorbide Mononitrate 30 MG Tab.ER PO SCH (18:00)
== END 2019-04-23 16:56 | disposition home or self-care (01) ==
LOC: LL.ED 13:37 → LL.MS 15:25 → UNDOADMOB 15:25 → LL.MS 15:43
PROVIDERS: ADMIT Family Medicine; ATTEND Family Medicine
DX: R07.2 Precordial pain (principal); I10 Essential (primary) hypertension; E03.9 Hypothyroidism, unspecified; I45.10 Unspecified right bundle-branch block; E78.5 Hyperlipidemia, unspecified; F41.8 Other specified anxiety disorders; M15.0 Primary generalized (osteo)arthritis; R73.09 Other abnormal glucose; R42 Dizziness and giddiness; E78.00 Pure hypercholesterolemia, unspecified; K21.9 Gastro-esophageal reflux disease without esophagitis; Z88.1 Allergy status to other antibiotic agents; Z79.2 Long term (current) use of antibiotics; Z79.899 Other long term (current) drug therapy
CPT/HCPCS: 36415; 71045; 80053; 80061; 82272; 82550; 82553; 83036; 83605; 83735; 83880; 84443; 84484; 84550; 85025; 85379; 85610; 85730; 87338; 93005; 96374; 96375; 99285-25; A9270-GY; G0378; J3490

== ENCOUNTER 2020-04-07 15:38 | Emergency (ER) | payer BC, OTHER ==
--- NOTE | 2020-04-07 15:54 | EDM.PDOC ---
ED HPI GENERAL MEDICAL PROBLEM - General Chief Complaint: Lower Extremity Injury/Pain Stated Complaint: door fell on right foot at work Time Seen by Provider: 04/07/20 15:50 Source of Information: Reports: Old Records ([facility] chart/EMR) History Limitations: Reports: No Limitations - History of Present Illness INITIAL COMMENTS - FREE TEXT/NARRATIVE: The patient was brought to the emergency room via transport vehicle from [facility] for evaluation of a Workmen's Compensation injury, which occurred at 3:02 PM this afternoon. The patient was lifting a Bobcat door when it accidentally fell on her right foot. She complains of 8/10 throbbing dorsal right foot pain with radiation to the big toe. She denies any medications or treatment prior to arrival with no previous injury to this area. She denies any neurological deficits or other complaints or injuries. The patient denies any chest pain/pressure, heart flutter, dizziness, orthostasis, orthopnea, diaphoresis, paresthesias, recent decreased exercise tolerance, or any other anginal-type symptoms. No recent history of abdominal pain, heartburn, nausea, diarrhea, melena, gross hematochezia, or any food intolerance, including fatty foods, etc.. Earlier this morning she also did some minor lifting and heard a "pop," however no significant discomfort in this area at this time. The patient also denies any recent fever, cough, wheezing, dyspnea, etc.. Onset: Today, Sudden Onset Date: 04/07/20 Duration: Constant Location: Reports: Lower Extremity, Right, Radiates to (As above). Denies: Head, Face, Neck, Chest, Abdomen, Back, Pelvis, Upper Extremity, Left, Upper Extremity, Right, Lower Extremity, Left Quality: Reports: Same as Previous Episode, Throbbing Severity: Moderate Improves with: Reports: None Worsens with: Reports: None Context: Reports: Trauma (As above). Denies: Sick Contact Associated Symptoms: Denies: Confusion, Chest Pain, Cough, Diaphoresis, Fever/Chills, Headaches, Loss of Appetite, Malaise, Nausea/Vomiting, Rash, Seizure, Shortness of Breath, Syncope, Weakness Treatments LEATHER SCRAPER: Reports: Other (see below) (None) Right Foot Pain Score (Numeric/FACES): 8 - Related Data Allergies Allergy/AdvReac Type Severity Reaction Status Date / Time erythromycin base Allergy Rash Verified 04/07/20 15:39 Home Meds: Home Meds Citalopram [Citalopram HBr] 20 mg PO DAILY 04/22/19 [History] Levothyroxine 25 mcg PO ACBREAKFAST #30 tablet 04/23/19 [Rx] amLODIPine [Norvasc] 5 mg PO DAILY #30 tab 04/23/19 [Rx] Past Medical History HEENT History: Reports: Cataract, Other (See Below). Denies: Allergic Rhinitis, Glaucoma, Hard of Hearing, Impaired Vision, Macular Degeneration, Otitis Media, Retinal Detachment Other HEENT History: Beginning cataracts. Cardiovascular History: Reports: Arrhythmia, High Cholesterol, Hypertension, Other (See Below). Denies: Afib, Aneurysm, Blood Clots/VTE/DVT, CAD, Cardiomyopathy, Heart Failure, Heart Murmur, MO, PVD, Syncope Other Cardiovascular History: Incomplete right bundle branch block. Dyslipidemia with no current medical therapy with patient not tolerating Lipitor secondary to myalgias. Respiratory History: Reports: Intubation, Previous. Denies: Asthma, Bronchitis, Recurrent, COPD, Intubation, Difficult, PE, Pneumonia, Recurrent, Pneumothorax, Sleep Apnea, TB Gastrointestinal History: Reports: Cholelithiasis, GERD. Denies: Bowel Obstruction, Celiac Disease, Chronic Constipation, Chronic Diarrhea, Gastritis, GI Bleed, Hepatitis, Hiatal Hernia, Inflammatory Bowel Disease, Irritable Bowel Syndrome, Jaundice, Pancreatitis, PUD Other Gastrointestinal History: Cholelithiasis by abdominal x-rays. Genitourinary History: Reports: Renal Calculus, STD, UTI, Recurrent, Other (See Below). Denies: Acute Renal Failure, BPH, Chronic Renal Insuffiency, Hydronephrosis, Retention, Urinary, Urinary Incontinence Other Genitourinary History: Recurrent right-sided urolithiasis with spontaneous passage in November 2019 with initial episode in 1989. Previously treated chlamydia in her 20s. SKI GUIDE History: Reports: . Denies: Dysfunctional Uterine Bleeding, Endometriosis, Fibroids, Spontaneous : 4 Para: 4 LMP (Approximate): Other (See Below) Other SKI GUIDE History: Gestational diabetes with last . Otherwise Full term without complications during pregnancies or deliveries. Surgical menopause secondary to uterine prolapse after last delivery. History of benign ovarian cysts. Musculoskeletal History: Reports: Arthritis, Back Pain, Chronic, Neck Pain, Chronic, Osteoarthritis. Denies: Amputation, Fracture, Gout, Osteoporosis, RA, SLE Other Musculoskeletal History: Bilateral Carpal tunnel syndrome with no surgery to this point. Neurological History: Reports: Concussion, Head Trauma, Neuropathy, Peripheral, Other (See Below). Denies: Cerebral Aneurysms, CVA, Headaches, Chronic, Migraines, MS, Parkinson's, Seizure, TIA, Vertigo Other Neuro History: Peripheral neuropathy secondary to carpal tunnel syndrome as above. Concussion at about age 9. Psychiatric History: Reports: Anxiety, Depression. Denies: Abuse, Victim of, ADD, ADHD, Addiction, Psych Hospitalization(s), PTSD, Suicide Attempt, Suicidal Ideation Endocrine/Metabolic History: Reports: Diabetes, Gestational, Diabetes, Type II, Hypothyroidism, Obesity/BMI 30+, Other (See Below). Denies: Diabetes, Type I, Diabetes Mellitus, Type 3c, IDDM, Osteopenia, Osteoporosis Other Endocrine/Metabolic History: Beginning diet-controlled diabetes with elevated glycosylated hemoglobin but no medical therapy at this time. Hematologic History: Reports: Anemia, Other (See Below). Denies: Blood Transfusion(s), Iron Deficiency Other Hematologic History: Anemia with pregnancies. Immunologic History: Reports: None. Denies: AIDS, HIV, SLE Oncologic (Cancer) History: Reports: None. Denies: Basal Cell Carcinoma, Breast, Cervix, Colon, Hodgkin's Lymphoma, Leukemia, Lymphoma, Malignant Melanoma, Non-Hodgkin's Lymphoma, Ovarian, Squamous Cell Carcinoma, Uterine Dermatologic History: Reports: None. Denies: Eczema, Psoriasis - Infectious Disease History Infectious Disease History: Reports: Chicken Pox, Measles, Novel Coronavirus (January 2020.). Denies: C-Difficile, Meningitis, Mononucleosis, MRSA, Mumps, Pertussis (Whooping Cough), Rheumatic Fever, Rubella, Scarlet Fever, Shingles, TB, VRE - Past Surgical History Head Surgeries/Procedures: Reports: None HEENT Surgical History: Reports: Adenoidectomy, LASIK, Oral Surgery, Tonsillectomy, Other (See Below). Denies: Cataract Surgery, Eye Surgery, Laser Surgery, Myringotomy w Tube(s), Naso-Sinus Surgery Other HEENT Surgeries/Procedures: [place] teeth extraction X 4 at age 18. Dental implantation X 1 in 2018. Tonsillectomy and adenoidectomy at age 12. LASIK surgery in 2006. Cardiovascular Surgical History: Reports: None. Denies: Varicose Respiratory Surgical History: Reports: None. Denies: Thoracentesis GI Surgical History: Reports: Colonoscopy, Other (See Below). Denies: Appendectomy, Cholecystectomy, EGD, Hernia, Abdominal, Hernia, Inguinal, Hernia Repair/Other, Polypectomy Other GI Surgeries/Procedures: Colonoscopy in 2011. Female Surgical History: Reports: Breast Biopsy, Hysterectomy. Denies: Section, D&C, Oophorectomy, Salpingo-Oophorectomy, Tubal Ligation Other Female Surgeries/Procedures: Left breast biopsies for benign disease in 2004 and 2007. Partial hysterectomy secondary to prolapsed uterus in 2008 with concomitant excision of benign ovarian cysts. Endocrine Surgical History: Reports: None. Denies: Thyroid Biopsy Neurological Surgical History: Reports: None. Denies: C-Spine, Discectomy Musculoskeletal Surgical History: Reports: Arthroscopic Procedure, Knee Replacement. Denies: Carpal Tunnel, Ganglion Cyst, Joint Replacement, ORIF, Shoulder Surgery Other Musculoskeletal Surgeries/Procedures:: Excision of left wrist ganglion cyst at age 16. Left wrist tendon release in 2015. Left Knee arthroscopic men iscal surgery in the fall of 2016. Oncologic Surgical History: Reports: None Dermatological Surgical History: Reports: None - Past Imaging History Past Imaging History: Reports: CAT Scan (CT of the chest using coronary protocol in 2014 which was negative by patient history. CT of the head on 09/30/16.), Mammogram (Last mammogram on 09/06/2019.), MRI (MRI of the left knee on 04/22/16. MRI of the left wrist on 05/09/15 and 05/01/15.), Stress Testing (Exercise cardiac stress test in about 2014) Social & Family History - Family History HEENT: Reports: Glaucoma, Other (See Below). Denies: Macular Degeneration, Retinal Detachment Other HEENT Family History: Father with glaucoma. Cardiac: Reports: Aneurysm, CAD, Cardiomyopathy, Heart Failure, High Cholesterol, Hypertension, MO, Pacemaker, Other (See Below). Denies: Afib, AICD, Arrhythmia, Blood Clots/VTE/DVT Other Cardiac Family History: Father with history of MO initially in his 50s with subsequent cardiac arrhythmia requiring pacemaker placement. Additional MO about 2 years thereafter with no other cardiac procedures. Father with hypertension and hyperlipidemia. Paternal grandfather with history of fatal ruptured thoracic aortic aneurysm at about 68. Paternal aunt with fatal MO in her late 60s. Respiratory: Reports: COPD, Sleep Apnea, Other (See Below). Denies: Asthma, PE, Pneumothorax Other Respiratory Family Hisory: Mother with COPD history of tobacco use. Parents with sleep apnea. GI: Reports: Colon Polyps, Other (See Below). Denies: Celiac Disease, Cholelithiasis, GERD, GI bleed, Hepatitis, Inflammatory Bowel Disease, Irritable Bowel Syndrome, Pancreatitis Other GI Family History: Mother and maternal brother 2 with colonic polyps. : Reports: None. Denies: Renal Calculus, Renal Disease/Insufficiency OBGYN: Reports: None. Denies: Endometriosis, Recurrent Spontaneous Musculoskeletal: Reports: Arthritis, RA, Other (See Below). Denies: Gout Other Musculoskeletal Family History: Mother with rheumatoid arthritis. Neurological: Reports: CVA, Other (See Below). Denies: Alzheimers Disease, Cerebral Aneurysms, Dementia, Migraines, Parkinson's, Seizure, TIA Other Neurological Family History: Father with initial CVA at age 69 with fatal CVA at age 71. Psychiatric: Reports: Anxiety, Depression, Other (See Below). Denies: Abuse, Victim of, ADD, ADHD, Psych Hospitalization(s), PTSD, Suicide Attempt Other Psychiatric Family History: Father with anxiety depression disorder. Endocrine/Metabolic: Reports: Diabetes, type II, IDDM, Other (See Below). Denies: Diabetes, Gestational, Diabetes, Type I, Diabetes Mellitus, Type 3c, Hypothyroidism Other Endocrine/Metabolic Family History: Father, paternal aunt, and paternal grandfather with IDDM. AODM in maternal grandmother. Sister with previous IDDM which did improve after weight loss and persistent AODM. Hematologic: Reports: None. Denies: Anemia, SLE Immunologic: Reports: None. Denies: AIDS, HIV, SLE Dermatologic: Reports: None. Denies: Eczema, Psoriasis Oncologic: Reports: Brain, Colon, Lung, Metastatic, Other (See Below). Denies: Breast, Cervix, Hodgkin's Lymphoma, Leukemia, Lymphoma, Non-Hodgkin's Lymphoma, Ovarian, Skin, Uterine Other Oncologic Family History: Maternal uncle with lung cancer in his 50s. Mother with fatal lung cancer including cerebral metastases at age 68 with previous history of tobacco use. Maternal grandfather with fatal brain cancer at age 50. Paternal grandmother with brain cancer at age 68. - Tobacco Use Tobacco Use Status *Q: Never Tobacco User Tobacco Use Within Last Twelve Months: No Used Tobacco, but Quit: No Smoking Cessation Information Provided To Patient: No Second Hand Smoke Exposure: No Second Hand Smoke Education Provided: No - Caffeine Use Caffeine Use: Reports: Coffee (2 cups/day), Soda ( 2 sodas per week), Tea (1 glass/month) - Alcohol Use Alcohol Use History: Yes Days Per Week of Alcohol Use: 0 Number of Drinks Per Day: 2 Number of Drinks Per Day Comment: Usually on a monthly basis. No previous DWIs, problems with alcohol abuse, etc. Total Drinks Per Week: 0 Alcohol Use in Last Twelve Months: Yes - Recreational Drug Use Recreational Drug Use: No Drug Use in Last 12 Months: No Recreational Drug Type: Denies: Amphetamines (Speed), Cocaine, Heroin, Inhalants (Glues, Solvents, Aerosols), LSD (Acid), Marijuana/Hashish, Methamphetamine, Morphine, Oxycodone - Living Situation & Occupation Living situation: Reports: (1992), with Family (Daughter) Occupation: Employed ([employer]) Review of Systems - Review of Systems Review Of Systems: Comprehensive ROS is negative, except as noted in HPI. ED EXAM, GENERAL - Physical Exam Exam: See Below Exam Limited By: No Limitations General Appearance: Alert, WD/WN, No Apparent Distress Head: Atraumatic, Normocephalic. No: Facial Swelling, Facial Tenderness, Sinus Tenderness Neck: Normal Inspection, Supple, Non-Tender, Full Range of Motion. No: Lymphadenopathy (L), Lymphadenopathy (R), Thyromegaly Respiratory/Chest: No Respiratory Distress, Lungs Clear, Normal Breath Sounds, No Accessory Muscle Use, Chest Non-Tender. No: Pleural Rub, Retractions Cardiovascular: Normal Peripheral Pulses, Regular Rate, Rhythm, No Edema, No Gallop, No JVD, No Murmur, No Rub. No: Gallop/S3, Gallop/S4, Friction Rub Peripheral Pulses: 2+: Radial (L), Radial (R), Dorsalis Pedis (R) GI/Abdominal: Normal Bowel Sounds, Soft, Non-Tender, No Organomegaly, No Distention, No Abnormal Bruit, No Mass, Pelvis Stable, Other (Obese). No: Guarding, Hernia (Female) Exam: Deferred Rectal (Female) Exam: Deferred Back Exam: Normal Inspection, Full Range of Motion. No: CVA Tenderness (L), CVA Tenderness (R), Muscle Spasm Extremities: Normal Range of Motion, No Pedal Edema. No: Warren's Sign, Leg Pain (Mild to moderate palpation pain over the dorsal aspect of the right foot with no evidence of significant abrasion, ecchymosis, swelling, deformity, crepitation, etc.) Neurological: Alert, Oriented, CN II-XII Intact, Normal Cognition, Normal Gait, No Motor/Sensory Deficits Psychiatric: Normal Affect, Normal Mood Skin Exam: Warm, Dry, Intact, Normal Color, No Rash. No: Diaphoretic, Wound/Incision Lymphatic: No Adenopathy ED TRAUMA EXTREMITY PROCEDURES - Splinting Right Lower Extremity Splint Site: Right foot Pre-Procedure NV Status: Normal Post-Procedure NV Status: Normal Splint Material: Boot Orthotic Splint Design: Other (Brandon wrap and postop shoe applied by the nurse) Applied & Form Fitted By: Nurse Provider Post-Splint Application NV Check: NV Status Normal, Good Position Complications: No Course - Vital Signs Last Recorded V/S: Last Vital Signs Temp 36.6 C 04/07/20 15:41 Pulse 71 04/07/20 15:41 Resp 16 04/07/20 15:41 BP 188/87 H 04/07/20 15:41 Pulse Ox 100 04/07/20 15:41 Vital Signs - 24 hr 04/07/20 04/07/20 04/07/20 15:41 15:45 16:04 Temperature [ 36.6 C Oral] Pulse, 71 75 72 Peripheral [ Left Pulse Oximetry] Respiratory 16 16 16 Rate Blood Pressure 188/87 H 160/85 H 182/83 H [Left Upper Arm ] O2 Sat by Pulse 100 99 100 Oximetry 04/07/20 16:20 Temperature [ Oral] Pulse, 77 Peripheral [ Left Pulse Oximetry] Respiratory 18 Rate Blood Pressure 152/75 H [Left Upper Arm ] O2 Sat by Pulse 99 Oximetry - Orders/Labs/Meds Orders: Active Orders 24 hr Category Date Time Status Foot Comp Min 3V Rt [CR] Stat Exams 04/07/20 15:56 Ordered Durable Medical Equipment for Discharge [DME for Oth 04/07/20 16:13 Ordered Discharge] [COMM] Routine Durable Medical Equipment for Discharge [DME for Oth 04/07/20 16:14 Ordered Discharge] [COMM] Routine Durable Medical Equipment for Discharge [DME for Oth 04/07/20 16:15 Ordered Discharge] [COMM] Routine Obtain Past Medical Record [OM.PC] Routine Oth 04/07/20 15:54 Active Labs: As above Meds: As above. - Radiology Interpretation Free Text/Narrative:: X-rays of the right foot, complete, shows mild to moderate osteoarthritic changes with probable artifact in the proximal aspect of the fourth metatarsal, however no evidence of fracture, dislocation, foreign body, etc. Departure - Departure Time of Disposition: 16:38 Disposition: Home, Self-Care 01 Condition: Good Clinical Impression: Mixed anxiety depressive disorder, Dyslipidemia, Peptic reflux disease, GERD (gastroesophageal reflux disease) Hypertension Qualifiers: Hypertension type: essential hypertension Qualified Code(s): I10 - Essential (primary) hypertension Osteoarthritis Qualifiers: Osteoarthritis location: multiple joints Osteoarthritis type: primary Qualified Code(s): M89.49 - Other hypertrophic osteoarthropathy, multiple sites Cholelithiasis Qualifiers: Cholelithiasis location: gallbladder Cholecystitis presence: without cholecystitis Biliary obstruction: without biliary obstruction Qualified Code(s): K80.20 - Calculus of gallbladder without cholecystitis without obstruction Contusion Qualifiers: Encounter type: initial encounter Contusion area: foot Laterality: right Qualified Code(s): S90.31XA - Contusion of right foot, initial encounter - Discharge Information *PRESCRIPTION DRUG MONITORING PROGRAM REVIEWED*: Not Applicable *COPY OF PRESCRIPTION DRUG MONITORING REPORT IN PATIENT CATHIE: Not Applicable Forms: ED Department Discharge Additional Instructions: 1. Followup with your regular provider in 7 days as directed with your regular provider with possible repeat x-ray of your right foot at that time depending on your symptoms. Bring these discharge instructions with you to that visit. 2. Tylenol 650 mg by mouth every 4 hours and/or OTC ibuprofen 2-3 tabs by mouth every 6 hours with food as directed./needed. You may stagger these medications for 48-72 hours only, which essentially means that you are receiving a pain medication about every 2 hours. 3. BenGay or equivalent, heating pad, and/or ice packs as directed. 4. Limited weightbearing with crutches, Brandon wrap, and postop shoe to be used as directed 5. Work excuse- See Form 6. Continue to observe your blood pressures closely through your regular provider. 7. Restart your Norvasc AMANDA as discussed with medication compliance strongly encouraged/directed 8. Discuss possible work-up with your regular provider for your gallbladder disease, including surgical referral secondary to intermittent symptoms, and/or initiation of stomach medications, etc. as discussed. Strict low-fat, low- cholesterol diet as directed. 9. Immediately after this visit verify that your cellular telephone's voicemail has been activated and is empty. Also verify that your home telephone's answering machine is operating properly and has space to receive messages. Note that it is sometimes necessary for us to be able to contact you at a later date to discuss your medical care. 10. Please remember that we are ALWAYS here for you and want to answer any questions you may have. Feel free to call the hospital any time and we call you back AMANDA. Sepsis Event Note (ED) - Evaluation Sepsis Screening Result: No Definite Risk - Focused Exam Vital Signs: Vital Signs Temp Pulse Resp BP Pulse Ox 04/07/20 15:41 36.6 C 71 16 188/87 H 100 - Problem List & Annotations (1) Contusion SNOMED Code(s): 310824781 Code(s): T14.8XXA - OTHER INJURY OF UNSPECIFIED BODY REGION, INITIAL ENCOUNTER Status: Acute Priority: High Onset Date: 04/07/20 Celeste otation/Comment:: Minor contusion of the right foot. Workmen's Compensation and [employer] work excuse forms were completed. Activity restrictions were discussed. Close follow-up by her regular provider. Qualifiers: Encounter type: initial encounter Contusion area: foot Laterality: right Qualified Code(s): S90.31XA - Contusion of right foot, initial encounter (2) Cholelithiasis SNOMED Code(s): 622374333 Code(s): K80.20 - CALCULUS OF GALLBLADDER W/O CHOLECYSTITIS W/O OBSTRUCTION Status: Chronic Priority: Medium Annotation/Comment:: Occasionally symptomatic gallbladder disease versus GERD with no current medical therapy. Close follow-up by regular provider as per discharge instructions. Dietary measures discussed. Qualifiers: Cholelithiasis location: gallbladder Cholecystitis presence: without cholecystitis Biliary obstruction: without biliary obstruction Qualified Code(s): K80.20 - Calculus of gallbladder without cholecystitis without obstruction (3) Hypertension SNOMED Code(s): 36217117 Code(s): I10 - ESSENTIAL (PRIMARY) HYPERTENSION Status: Acute Priority: High Annotation/Comment:: Blood pressures under poor control in the emergency room with the patient stopping her blood pressure medications on her own in early March. Medication compliance was strongly encouraged with reinitiation of her medications AMANDA as per discharge instructions. Close follow-up by her regular provider. Qualifiers: Hypertension type: essential hypertension Qualified Code(s): I10 - Essential (primary) hypertension (4) Hypothyroidism (acquired) SNOMED Code(s): 787669649 Code(s): E03.9 - HYPOTHYROIDISM, UNSPECIFIED Status: Acute Priority: Medium Onset Date: 04/22/19 Annotation/Comment:: Currently under therapy. (5) Peptic reflux disease SNOMED Code(s): 390644488 Code(s): K21.9 - GASTRO-ESOPHAGEAL REFLUX DISEASE WITHOUT ESOPHAGITIS Status: Chronic Priority: Medium Annotation/Comment:: As above (6) Dyslipidemia SNOMED Code(s): 268639587 Code(s): E78.5 - HYPERLIPIDEMIA, UNSPECIFIED Status: Chronic Priority: Medium Annotation/Comment:: Not currently under therapy secondary to her previous intolerance with statins. Weight loss in moderation advisable. Note history of probable borderline diabetes and elevated glycosylated hemoglobin with close follow-up by her regular provider. (7) Mixed anxiety depressive disorder SNOMED Code(s): 303937549 Code(s): F41.8 - OTHER SPECIFIED ANXIETY DISORDERS Status: Chronic Priority: Medium Annotation/Comment:: Stable by history. Close follow-up by regular provider. (8) Osteoarthritis SNOMED Code(s): 668092239 Code(s): M19.90 - UNSPECIFIED OSTEOARTHRITIS, UNSPECIFIED SITE Status: Chronic Priority: Medium Annotation/Comment:: Stable by patient history with no evidence of other injuries. Qualifiers: Osteoarthritis location: multiple joints Osteoarthritis type: primary Qualified Code(s): M89.49 - Other hypertrophic osteoarthropathy, multiple sites - Problem List Review Problem List Initiated/Reviewed/Updated: Yes - My Orders Last 24 Hours: My Active Orders 04/07/20 15:54 Obtain Past Medical Record [OM.PC] Routine 04/07/20 15:56 Foot Comp Min 3V Rt [CR] Stat 04/07/20 16:13 Durable Medical Equipment for Discharge [DME for Discharge] [COMM] Routine 04/07/20 16:14 Durable Medical Equipment for Discharge [DME for Discharge] [COMM] Routine 04/07/20 16:15 Durable Medical Equipment for Discharge [DME for Discharge] [COMM] Routine - Assessment/Plan Last 24 Hours: My Active Orders 04/07/20 15:54 Obtain Past Medical Record [OM.PC] Routine 04/07/20 15:56 Foot Comp Min 3V Rt [CR] Stat 04/07/20 16:13 Durable Medical Equipment for Discharge [DME for Discharge] [COMM] Routine 04/07/20 16:14 Durable Medical Equipment for Discharge [DME for Discharge] [COMM] Routine 04/07/20 16:15 Durable Medical Equipment for Discharge [DME for Discharge] [COMM] Routine Assessment:: As above Plan: As above. Extensive precautions were given to the patient, who is in agreement with the treatment plan. See Patient Instructions for further treatment and plan.
[2020-04-07 16:48] VITALS: BP 152/75; PULSE 77
== END 2020-04-07 16:35 | disposition home or self-care (01) ==
LOC: LL.ED 15:38
DX: S90.31XA Contusion of right foot, initial encounter (principal); K80.20 Calculus of gallbladder without cholecystitis without obstruction; M89.49 Other hypertrophic osteoarthropathy, multiple sites; I10 Essential (primary) hypertension; F41.8 Other specified anxiety disorders; E78.5 Hyperlipidemia, unspecified; K21.9 Gastro-esophageal reflux disease without esophagitis; E11.42 Type 2 diabetes mellitus with diabetic polyneuropathy; E03.9 Hypothyroidism, unspecified; E66.9 Obesity, unspecified; Z68.27 Body mass index [BMI] 27.0-27.9, adult; Z88.1 Allergy status to other antibiotic agents; Z79.899 Other long term (current) drug therapy; W20.8XXA Other cause of strike by thrown, projected or falling object, initial encounter; Y99.0 Civilian activity done for income or pay
CPT/HCPCS: 73630-RT; 99283

== ENCOUNTER 2021-08-08 07:34 | Emergency (ER) | payer OTHER, BC ==
[2021-08-08] MEDS ORDERED: Acetaminophen 500 MG Tab PO ONE (08:48)
[2021-08-08 10:39] VITALS: BP 149/65; PULSE 66
== END 2021-08-08 12:00 | disposition still patient (30) ==
LOC: LL.ED 07:34
DX: M79.10 Myalgia, unspecified site (principal); M25.561 Pain in right knee; M25.562 Pain in left knee; M25.571 Pain in right ankle and joints of right foot; E78.00 Pure hypercholesterolemia, unspecified; I10 Essential (primary) hypertension; K21.9 Gastro-esophageal reflux disease without esophagitis; Z79.899 Other long term (current) drug therapy; Z88.1 Allergy status to other antibiotic agents; Z88.8 Allergy status to other drugs, medicaments and biological substances
CPT/HCPCS: 72040; 72100; 72220; 73560-50; 73610-RT; 81001; 99284-25; A9270-GY

== ENCOUNTER 2024-09-30 12:01 | Day surgery (SDC) | payer BC ==
[~2024-09-30 12:01] MED LIST: Propofol 200 MG/20 ML SDV ONE; Sodium Chloride 0.9% 10 ML Syringe FLUSH PRN
[2024-09-30] MEDS: Lactated Ringers 1,000 ML IV SCH (13:57)
[2024-09-30 15:35] VITALS: BP 137/72; PULSE 64
== END 2024-09-30 15:00 | disposition home or self-care (01) ==
LOC: LL.SDS 12:01
PROVIDERS: ATTEND Surgery
DX: K20.90 Esophagitis, unspecified without bleeding (principal)
CPT/HCPCS: 00731; J2704; J7120